=== PATIENT | female | born 1985 | race Caucasian/White ===

== ENCOUNTER → 2017-01-09 | Outpatient (REF) | payer OTHER ==
[~2017-01-09] MED LIST: CALCIUM PO; MAGNESIUM PO; ZINC PO; prenatal vitamins PO
== END ==
LOC: M LAB REF 12:54
PROVIDERS: ATTEND Advanced Practice Midwife
DX: Z12.4 Encounter for screening for malignant neoplasm of cervix (principal)

== ENCOUNTER → 2017-01-23 | Outpatient (CLI) | payer OTHER ==
[2017-01-23 17:22] LABS: MEAN CORPUSCULAR HEMOGLOBIN 30.1 pg (27.0-33.0); MEAN CORPUSCULAR HGB CONC 34.4 g/dl (32.0-36.5); MEAN CORPUSCULAR VOLUME 87.6 fl (80.0-96.0); RED CELL DISTRIBUTION WIDTH 12.3 % (11.5-14.5); WHITE BLOOD COUNT 11.5 K/mm3 (4.0-10.0)
[2017-01-23 17:48] LABS: BASOPHILS 1 % (0-4)
== END ==
LOC: M WUC 11:39
PROVIDERS: ATTEND Physician Assistant
DX: J03.90 Acute tonsillitis, unspecified (principal)

== ENCOUNTER → 2017-01-30 | Outpatient (CLI) | payer OTHER ==
[2017-01-30 19:47] LABS: MEAN CORPUSCULAR HEMOGLOBIN 29.6 pg (27.0-33.0); MEAN CORPUSCULAR HGB CONC 34.3 g/dl (32.0-36.5); MEAN CORPUSCULAR VOLUME 86.2 fl (80.0-96.0); RED CELL DISTRIBUTION WIDTH 12.6 % (11.5-14.5); WHITE BLOOD COUNT 8.7 K/mm3 (4.0-10.0)
[2017-01-30 20:22] LABS: BASOPHILS 1 % (0-4); EOSINOPHILS 1 % (0-5)
== END ==
LOC: M WUC 15:12
PROVIDERS: ATTEND Physician Assistant
DX: J03.90 Acute tonsillitis, unspecified (principal)

== ENCOUNTER → 2019-07-15 | Outpatient (REF) | payer OTHER | LOC: M LAB REF 17:45 | PROVIDERS: ATTEND Advanced Practice Midwife | DX: Z12.4 Encounter for screening for malignant neoplasm of cervix (principal) ==

== ENCOUNTER → 2022-09-19 | Outpatient (REF) | payer OTHER | LOC: M PLALAB 16:28 | PROVIDERS: ATTEND Advanced Practice Midwife | DX: Z12.4 Encounter for screening for malignant neoplasm of cervix (principal) ==

== ENCOUNTER 2022-12-05 10:36 | Emergency (ER) | payer OTHER ==
[~2022-12-05] VITALS: Ht 157.5 cm; Wt 86.5 kg
[2022-12-05] MEDS ORDERED: VITMTA PO (11:11)
[2022-12-05] MEDS ORDERED: ELINTAB (11:11)
[2022-12-05 11:43] LABS: BASO % 0.4 % (0.0-1.0); EOS % 0.4 % (0.0-3.0); HEMATOCRIT 43.1 % (36.0-47.0); HEMOGLOBIN 14.3 g/dl (12.0-15.5); LYMPH # 3.3 10^3/uL (1.5-5.0); MEAN CORPUSCULAR HEMOGLOBIN 28.9 pg (27.0-33.0); MEAN CORPUSCULAR HGB CONC 33.2 g/dl (32.0-36.5); MEAN CORPUSCULAR VOLUME 87.1 fl (80.0-96.0); MONO # 0.4 10^3/uL (0.0-0.8); MONO % 5.3 % (2.0-8.0); NEUTROPHILS # 4.5 10^3/uL (1.5-8.5); NEUTROPHILS % 53.7 % (36.0-66.0); PLATELET COUNT, AUTOMATED 371 10^3/uL (150-450); RED BLOOD COUNT 4.95 10^6/uL (4.00-5.40); WHITE BLOOD COUNT 8.3 10^3/uL (4.0-10.0)
[2022-12-05 12:08] LABS: BLOOD UREA NITROGEN 10 MG/DL (9-23); CARBON DIOXIDE LEVEL 28 MMOL/L (20-31); CHLORIDE LEVEL 105 MMOL/L (98-107); CREATININE FOR GFR 0.67 MG/DL (0.55-1.30); GLOMERULAR FILTRATION RATE > 60.0 (>60); GLUCOSE, FASTING 114 MG/DL (60-100); POTASSIUM SERUM 3.9 MMOL/L (3.5-5.1); SODIUM LEVEL 136 MMOL/L (136-145)
[2022-12-05 14:41] VITALS: BP 147/99
[2022-12-05] MEDS ORDERED: IBUP-1022 PO (14:47)
[2022-12-05] MEDS ORDERED: METH-1164 PO (14:47)
== END 2022-12-05 14:53 | disposition home or self-care (01) ==
LOC: M ED 10:36
DX: M54.9 Dorsalgia, unspecified (principal); Z79.3 Long term (current) use of hormonal contraceptives